=== PATIENT | male | born 1945 | race Caucasian/White ===

== ENCOUNTER → 2016-11-21 | Outpatient (CLI) | payer OTHER | LOC: MMPC 11:11 | DX: H91.13 Presbycusis, bilateral (principal); H35.30 Unspecified macular degeneration; N40.0 Benign prostatic hyperplasia without lower urinary tract symptoms; N52.9 Male erectile dysfunction, unspecified; E55.9 Vitamin D deficiency, unspecified | CPT/HCPCS: 99213; G0463 ==